=== PATIENT | female | born 1970 | race Caucasian/White ===

== ENCOUNTER 2021-08-19 13:31 | Observation (INO) ==
[2021-08-19 14:23] LABS: Basophils # 0.1 K/mcL (0.0-0.2); Basophils % 0.3 %; Eosinophils % 0.1 %; Hematocrit 43.4 % (35.3-44.9); Hemoglobin 14.6 g/dL (11.5-15.4); Immature Granulocytes % 0.6 % (0-4); Lymphocytes # 1.3 K/mcL (0.6-4.6); Lymphocytes % 6.7 %; Mean Corpuscular HGB Conc 33.6 g/dL (31.6-35.5); Mean Corpuscular Hemoglobin 32.9 pg (28.0-33.3); Mean Corpuscular Volume 97.7 fL (83.0-100.0); Monocytes # 1.4 K/mcL (0.0-1.3); Monocytes % 7.2 %; Neutrophils # 16.1 K/mcL (1.6-8.9); Platelet Count 198 K/mcL (140-400); Red Blood Count 4.44 M/mcL (3.82-4.97); Red Cell Distribution Width 14.3 % (11.5-14.5); Segmented Neutrophils % 85.1 %; White Blood Count 18.9 K/mcL (4.3-11.1)
[2021-08-19 14:26] LABS: Bilirubin,Urine Negative (Negative); Blood,Urine Small (Negative); Clarity,Urine Turbid (Clear); Color,Urine Yellow (Yellow); Glucose,Urine (UA) Normal (Normal); Ketones,Urine 20 mg/dL (Negative); Leukocyte Esterase,Urine Trace (Negative); Mucus,Urine Few per lpf (None-Few); Nitrite,Urine Negative (Negative); PH,Urine 8.5 pH Units (5.0-8.0); Protein,Urine >=300 mg/dL (Neg-Trace); RBC,Urine 15-30 per hpf (0-3); Specific Gravity,Urine 1.026 (1.010-1.025); Squamous Epithelial Cell,Urine Many per hpf (None-Few); Transitional Epi Cells,Urine Few per hpf (None-Few); Urobilinogen,Urine Normal (Normal)
[2021-08-19 14:41] LABS: BUN/Creatinine Ratio 14 (6-26); Blood Urea Nitrogen 13 mg/dL (6-20); Calcium 9.7 mg/dL (8.6-10.3); Carbon Dioxide 25 mEq/L (23-29); Chloride 99 mEq/L (98-107); Glucose 116 mg/dL (70-105); Osmolality,Calculated 281 (280-300); Potassium 3.4 mEq/L (3.5-5.1); Sodium 135 mEq/L (136-145); eGFR For African Americans > 60 (> 60); eGFR For Non-African Americans > 60 (> 60)
[2021-08-19] MEDS ORDERED: 0.9 % Sodium Chloride 1,000 ML IVC ONE (15:10)
[2021-08-19] MEDS ORDERED: Morphine Sulfate 2 MG/ML SYRINGE IVP ONE (15:10)
[2021-08-19] MEDS ORDERED: Ondansetron 4 MG/2 ML VIAL IVP ONE (15:10)
[2021-08-19] MEDS ORDERED: Piperacillin/Tazobactam 3.375 GM in 0.9 % Sodium Chloride Mini Bag 100 ML IVPB ONE (17:05)
[2021-08-19] MEDS ORDERED: *HR* FentaNYL (PF) 100 MCG/2 ML VIAL IVP ONE (17:05)
[2021-08-19] MEDS ORDERED: 0.9 % Sodium Chloride 1,000 ML IVC SCH (17:45)
[2021-08-19] MEDS ORDERED: *HR* OxyCODONE Immed Rel 5 MG TABLET PO PRN (19:38)
[2021-08-19] MEDS ORDERED: Ondansetron 4 MG/2 ML VIAL IVP PRN (19:38)
[2021-08-19] MEDS ORDERED: *HR* HYDROmorphone PF 0.5 MG/0.5 ML SYRINGE IVP PRN (19:38)
[2021-08-19] MEDS ORDERED: Promethazine 6.25 MG in Water for inj. (sterile) 20 ML IVPB PRN (19:38)
[2021-08-19] MEDS ORDERED: *HR* FentaNYL (PF) 100 MCG/2 ML VIAL ONE (22:43)
[2021-08-19] MEDS ORDERED: *HR* Propofol 200 MG/20 ML VIAL IVP ONE (22:44)
[2021-08-19] MEDS ORDERED: Ondansetron 4 MG/2 ML VIAL ONE (22:45)
[2021-08-19] MEDS ORDERED: Lidocaine HCL 4 ML Topical Solution (Laryng-O-Jet Kit Sterile Pak) TP ONE (22:45)
[2021-08-19] MEDS ORDERED: *HR* Rocuronium Bromide 50 MG/5 ML VIAL ONE (22:45)
[2021-08-19] MEDS ORDERED: Lidocaine -MPF 2% 2 ML VIAL ONE (22:45)
[2021-08-19] MEDS ORDERED: Sugammadex Sodium 200 MG/2 ML VIAL IV ONE (22:46)
[2021-08-19] MEDS ORDERED: Acetaminophen IV 1,000 MG/100 ML BAG IVPB ONE ×2 (23:21→23:27)
[2021-08-19] MEDS ORDERED: *HR* HYDROMORPHONE 2 MG/ML VIAL ONE (23:28)
[2021-08-20] MEDS ORDERED: Lidocaine -MPF 2% 2 ML VIAL ONE (00:02)
[2021-08-20] MEDS ORDERED: Ondansetron 4 MG/2 ML VIAL IVP PRN (01:41)
[2021-08-20] MEDS ORDERED: 0.9 % Sodium Chloride 1,000 ML IVC SCH ×2 (01:41→09:14)
[2021-08-20] MEDS ORDERED: *HR* OxyCODONE/APAP 5/325 TABLET PO PRN (01:41)
[2021-08-20 03:37] LABS: Basophils % 0.2 %; Eosinophils # 0.1 K/mcL (0.0-0.6); Eosinophils % 0.4 %; Hematocrit 37.3 % (35.3-44.9); Immature Granulocytes % 1.1 % (0-4); Lymphocytes # 0.8 K/mcL (0.6-4.6); Lymphocytes % 3.7 %; Mean Corpuscular Hemoglobin 32.7 pg (28.0-33.3); Mean Corpuscular Volume 99.2 fL (83.0-100.0); Mean Platelet Volume 11.3 fL (9.4-12.4); Monocytes % 4.8 %; Neutrophils # 18.7 K/mcL (1.6-8.9); Platelet Count 154 K/mcL (140-400); Red Blood Count 3.76 M/mcL (3.82-4.97); Red Cell Distribution Width 14.4 % (11.5-14.5); Segmented Neutrophils % 89.8 %; White Blood Count 20.8 K/mcL (4.3-11.1)
[2021-08-20 03:38] LABS: Hemoglobin 12.3 g/dL (11.5-15.4)
[2021-08-20] MEDS ORDERED: Ketorolac 30 MG/ML VIAL IVP SCH (06:00)
[2021-08-20] MEDS ORDERED: lamoTRIgine 25 MG TABLET PO SCH ×2 (09:15→18:00)
[2021-08-20] MEDS: Piperacillin/Tazobactam 3.375 GM in 0.9 % Sodium Chloride Mini Bag 100 ML IVPB SCH ×2 (09:56→18:33)
[2021-08-20] MEDS: Ibuprofen 800 MG TABLET PO SCH ×3 (09:57→23:08)
[2021-08-20] MEDS: Gabapentin 100 MG CAPSULE PO SCH ×3 (09:59→20:41)
[2021-08-20] MEDS: Acetaminophen 325 MG TABLET PO SCH ×3 (12:25→23:09)
[2021-08-20] MEDS ORDERED: *HR* Heparin 5,000 UNIT/ML VIAL SQ SCH (18:00)
[2021-08-20 19:47] VITALS: BP 106/72; PULSE 77; TEMP 97.9; O2SAT 96
[2021-08-20] MEDS ORDERED: sulfaSALAzine 500 MG TABLET PO SCH (21:00)
[2021-08-20] MEDS ORDERED: metroNIDAZOLE 500 MG TABLET PO ONE (22:23)
== END 2021-08-21 00:05 | disposition home or self-care (01) ==
LOC: 3ANU 13:31 → EMEROOARM 13:31 → SUATTDRO 18:11 → 3ANU 18:56
PROVIDERS: ADMIT Surgery; ATTEND Surgery